=== PATIENT | female | born 1975 | race Caucasian/White ===

== ENCOUNTER 2017-11-07 14:01 | Outpatient (RCR) | payer OTHER ==
[2017-11-05 14:01] LABS: HEMOGLOBIN 13.2 G/DL (11.5-16.0); MEAN PLATELET VOLUME 10.3 FL (7.4-10.4); RED BLOOD COUNT 4.54 10^6/uL (4.35-5.85); RED CELL DISTRIBUTION WIDTH 14.3 % (10.0-14.5); WHITE BLOOD COUNT 16.2 10^3/uL (4.3-11.0)
[2017-11-05 14:08] LABS: BILIRUBIN,URINE NEGATIVE (NEGATIVE); CLARITY,URINE CLEAR; COLOR,URINE YELLOW; GLUCOSE, URINE (UA) NEGATIVE (NEGATIVE); KETONES,URINE NEGATIVE (NEGATIVE); LEUKOCYTE ESTERASE ,URINE NEGATIVE (NEGATIVE); NITRITE,URINE NEGATIVE (NEGATIVE); PH,URINE 8 (5-9); PROTEIN,URINE NEGATIVE (NEGATIVE); UROBILINOGEN,URINE NORMAL (NORMAL)
[2017-11-05] MEDS: CATHETER FLUSH 10 ML SYR IV PRN (14:15)
[2017-11-05 14:17] LABS: BACTERIA,URINE FEW /HPF; WBC,URINE RARE /HPF
[2017-11-05 14:24] LABS: ALANINE AMINOTRANSFERASE 15 U/L (0-55); ALBUMIN 3.8 GM/DL (3.2-4.5); ALKALINE PHOSPHATASE 55 U/L (40-136); BILIRUBIN,TOTAL 0.4 MG/DL (0.1-1.0); BUN/CREATININE RATIO 13; CARBON DIOXIDE 23 MMOL/L (21-32); CHLORIDE 108 MMOL/L (98-107); CREATININE SERUM 0.68 MG/DL (0.60-1.30); GFR ESTIMATED > 60; GLUCOSE 152 MG/DL (70-105); POTASSIUM 3.7 MMOL/L (3.6-5.0); SODIUM 140 MMOL/L (135-145); TOTAL PROTEIN 6.7 GM/DL (6.4-8.2)
[2017-11-05 14:50] VITALS: BP 108/60
[2017-11-06] MEDS: SODIUM CHLORIDE IV SCH ×2 (14:20)
[2017-11-06] MEDS: GENTAMICIN IV SCH ×2 (14:20)
[2017-11-06 15:30] VITALS: BP 101/58
[~2017-11-07] VITALS: Ht 167.6 cm; Wt 88.5 kg
[~2017-11-07 14:01] MED LIST: GENTAMICIN IV SCH; SODIUM CHLORIDE IV SCH
[2017-11-07 14:05] VITALS: BP 91/74
[2017-11-07] MEDS: CATHETER FLUSH 10 ML SYR IV PRN (14:49)
[2017-11-07] MEDS: SODIUM CHLORIDE IV SCH ×2 (14:50)
[2017-11-07] MEDS: GENTAMICIN IV SCH ×2 (14:50)
[2017-11-08 14:00] VITALS: BP 96/54
[2017-11-08] MEDS: GENTAMICIN IV SCH ×2 (14:52)
[2017-11-08] MEDS: SODIUM CHLORIDE IV SCH ×2 (14:52)
[2017-11-08 16:00] VITALS: BP 96/54
[2017-11-09] MEDS: GENTAMICIN IV SCH ×2 (14:25)
[2017-11-09] MEDS: SODIUM CHLORIDE IV SCH ×2 (14:25)
[2017-11-09 14:29] VITALS: BP 118/59
[2017-11-09 15:35] VITALS: BP 118/59
== END 2017-11-09 | disposition home or self-care (01) ==
LOC: SDC 14:01
PROVIDERS: ATTEND Nurse Practitioner Family
DX: A21.9 Tularemia, unspecified (principal)
CPT/HCPCS: 36415; 76937; 80053; 80170; 81000; 85027; 96365

== ENCOUNTER 2017-11-11 13:58 | Outpatient (RCR) | payer OTHER ==
[2017-11-10] MEDS: SODIUM CHLORIDE IV SCH ×2 (14:40)
[2017-11-10] MEDS: GENTAMICIN IV SCH ×2 (14:40)
[2017-11-10 15:10] LABS: HEMOGLOBIN 13.2 G/DL (11.5-16.0); MEAN PLATELET VOLUME 10.2 FL (7.4-10.4); RED BLOOD COUNT 4.58 10^6/uL (4.35-5.85); RED CELL DISTRIBUTION WIDTH 15.2 % (10.0-14.5); WHITE BLOOD COUNT 14.7 10^3/uL (4.3-11.0)
[2017-11-10 15:32] LABS: ALANINE AMINOTRANSFERASE 17 U/L (0-55); ALBUMIN 3.7 GM/DL (3.2-4.5); ALKALINE PHOSPHATASE 52 U/L (40-136); BILIRUBIN,TOTAL 0.3 MG/DL (0.1-1.0); BUN/CREATININE RATIO 12; CALCIUM 9.1 MG/DL (8.5-10.1); CARBON DIOXIDE 24 MMOL/L (21-32); CHLORIDE 104 MMOL/L (98-107); CREATININE SERUM 0.65 MG/DL (0.60-1.30); GFR ESTIMATED > 60; GLUCOSE 114 MG/DL (70-105); POTASSIUM 3.3 MMOL/L (3.6-5.0); SODIUM 138 MMOL/L (135-145); TOTAL PROTEIN 6.6 GM/DL (6.4-8.2)
[2017-11-10 15:45] VITALS: BP 99/61
[2017-11-10 15:52] LABS: BILIRUBIN,URINE NEGATIVE (NEGATIVE); CLARITY,URINE CLEAR; COLOR,URINE YELLOW; GLUCOSE, URINE (UA) NEGATIVE (NEGATIVE); KETONES,URINE NEGATIVE (NEGATIVE); LEUKOCYTE ESTERASE ,URINE NEGATIVE (NEGATIVE); NITRITE,URINE NEGATIVE (NEGATIVE); PH,URINE 6 (5-9); PROTEIN,URINE NEGATIVE (NEGATIVE); UROBILINOGEN,URINE NORMAL (NORMAL)
[2017-11-10 16:01] LABS: SQUAMOUS EPITHELIAL CELL,UR 0-2 /HPF
[~2017-11-11] VITALS: Ht 167.6 cm; Wt 88.5 kg
[2017-11-11 13:55] VITALS: BP 98/72
[2017-11-11] MEDS: SODIUM CHLORIDE IV SCH ×2 (14:19)
[2017-11-11] MEDS: GENTAMICIN IV SCH ×2 (14:19)
== END 2017-11-11 15:30 | disposition home or self-care (01) ==
LOC: SDC 13:58
PROVIDERS: ATTEND Nurse Practitioner Family
DX: A21.9 Tularemia, unspecified (principal)
CPT/HCPCS: 36415; 80053; 81000; 85027; 96365